=== PATIENT | female | born 1930 | race Caucasian/White ===

== ENCOUNTER 2017-02-17 23:19 | Observation (INO) | payer OTHER, MEDICARE ==
[~2017-02-17] VITALS: Ht 149.9 cm; Wt 61.7 kg
--- NOTE | 2017-02-17 23:46 | ED SYNCOPE COMPLAINT ---
History of Present Illness General Chief Complaint: Syncope and Near-Syncope Stated Complaint: BIBA SYNCOPE Source: patient, family, old records, EMS Exam Limitations: no limitations Vital Signs & Intake/Output Vital Signs & Intake/Output Vital Signs Date Time Temp Pulse Resp B/P B/P Pulse O2 O2 Flow FiO2 Mean Ox Delivery Rate 02/18 0109 97.1 74 18 160/69 97 Nasal 2.0L Cannula 02/17 2343 97.8 89 18 132/89 98 Room Air ED Intake and Output 02/18 0000 02/17 1200 Intake Total Output Total Balance Patient 136 lb Weight Weight Reported by Patient Measurement Method Allergies Coded Allergies: Cephalosporins (UNKNOWN 02/17/17) MDX - Amlodipine (From NORVASC) (TONGUE SWELLING 01/19/11) MDX - Ciprofloxacin (From CIPRO HC) (RASH 01/19/11) MDX - Hydrocortisone (From CIPRO HC) (RASH 01/19/11) Penicillins (UNKNOWN 02/17/17) Sulfa (Sulfonamide Antibiotics) (UNKNOWN 02/17/17) sulfamethoxazole (From BACTRIM) (UNKNOWN 02/17/17) trimethoprim (From BACTRIM) (UNKNOWN 02/17/17) Uncoded Allergies: ANTIBIOTICS (TONGUE SWELLING 01/19/11) Triage Note: TRIAGE: BIBA FROM HOME REPORTS SUDDEN ONSET R SIDE PAIN FOLLOWED BY SYNCOPAL EPISODE DATA ARCHITECT. PER EMS, SLIGHTLY HYPOTENSIVE ON EMS ARRIVAL. PATIIENT REPORTED DURING TRANSPORT FELT URGE TO SYNCOPIZE AGAIN BUT DID NOT. PATIENT DENIES CP/SOB. COLOR WNL. PREHOSP FINGERSTICK 121. Triage Nurses Notes Reviewed? yes HPI: Patient woke up at 2 AM Friday morning with a dry, nonproductive cough. Cough has been constant throughout the day. Positive anorexia but no nausea or vomiting. Patient denies shortness of breath. Tonight she was getting ready for bed when she had a visit sharp sudden pain right side. The pain lasted approximately 20 seconds but then the patient felt very lightheaded. Patient went and knocked on her son's bedroom door and then she had a witnessed syncopal episode. Son states that she was out for a few seconds and then she came to but when she attempted to sit up she had another syncopal episode. She again came to after a few seconds and this time stating on the floor for a few minutes report get up. Patient currently denies any pain. Patient denies any chest pain or palpitations prior to the episode. Past History Travel History Traveled to [place] past 21 day No Medical History Any Pertinent Medical History? 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 No Review of Systems Review of Systems Constitutional: Reports: no symptoms. EENTM: Reports: no symptoms. Respiratory: Reports: see HPI, cough. Cardiovascular: Reports: no symptoms. GI: Reports: no symptoms. Genitourinary: Reports: no symptoms. Musculoskeletal: Reports: no symptoms. Skin: Reports: no symptoms. Neurological/Psychological: Reports: no symptoms. All Other Systems: Reviewed and Negative Physical Exam Physical Exam General Appearance: well developed/nourished, alert, awake, anxious, mild distress Head: atraumatic, normal appearance Eyes: Bilateral: PERRL, EOMI. Ears, Nose, Throat: normal pharynx, normal ENT inspection, hearing grossly normal Neck: normal inspection, supple, full range of motion Respiratory: normal breath sounds, chest non-tender, no respiratory distress, lungs clear Cardiovascular: regular rate/rhythm, normal peripheral pulses Gastrointestinal: normal bowel sounds, soft, non-tender, no organomegaly Extremities: RIGHT GREAT TOENAIL LIFTED UP, BLEEDING CONTROLLED Psychiatric: awake, alert, oriented x 3 Cranial Nerves: normal hearing, normal speech, PERRL Motor/Sensory: no motor/sensory deficits Skin: intact, normal color, warm/dry Core Measures ACS in differential dx? Yes CVA/TIA Diagnosis: No Sepsis Present: No Sepsis Focused Exam Completed? No Progress Differential Diagnosis: AMI, drug induced syncope, orthostatic syncope, pulmonary embolus, sick sinus syndrome Plan of Care: Orders Procedure Date/time Status Heart Healthy Diet 02/[address] in observation 02/18 138 Active ED Holding Orders 02/18 138 Active Vital Signs 02/18 138 Active Code Status 02/18 138 Active Add-on Test (ER Only) 02/18 0105 Active D-DIMER 02/17 2355 Active Telemetry/Bail Bonding Agent 02/17 2345 Active TROPONIN LEVEL 02/17 2345 Complete COMPREHENSIVE METABOLIC PANEL 02/17 2345 Complete CBC WITHOUT DIFFERENTIAL 02/17 2345 Complete EKG 02/17 2323 Active Laboratory Tests 02/17/176: Anion Gap 14, Estimated GFR 47 L, BUN/Creatinine Ratio 17.3, Glucose 107 H, Calcium 10.0, Total Bilirubin 0.7, AST 24, ALT 25, Alkaline Phosphatase 88, Troponin I < 0.01, Total Protein 7.0, Albumin 4.1, Globulin 2.9, Albumin/ Globulin Ratio 1.4, D-Dimer High Sensitivty Pending, CBC w Diff NO MAN DIFF REQ, RBC 4.14 L, MCV 90.8, MCH 31.2 H, RDW 13.0, MPV 8.1, Gran % 83.9 H, Lymphocytes % 6.3 L, Monocytes % 8.8, Eosinophils % 0.8, Basophils % 0.2, Absolute Granulocytes 7.1 H, Absolute Lymphocytes 0.5 L, Absolute Monocytes 0.8 H, Absolute Eosinophils 0.1, Absolute Basophils 0, PUBS MCHC 34.4 Diagnostic Imaging: Viewed by Me: Radiology Read. Discussed w/RAD: Radiology Read. CXR Impression: PATIENT: MILIND LOPEZ PRESENT AGE : 86 PATIENT ACCOUNT NO: [id number] : 32 LOCATION: [facility] ORDERING PHYSICIAN: Harshad Robles MD SERVICE DATE: 02/17/17 EXAM TYPE: RAD - XRY-CHEST XRAY, TWO VIEWS EXAMINATION: XR CHEST CLINICAL INFORMATION: Productive cough. COMPARISON: 01/19/2011 TECHNIQUE: 2 views of the chest were obtained. FINDINGS: The lungs are well expanded. No consolidation, edema, or effusion. No pneumothorax. There is a large hiatal hernia with an air-fluid level. The cardiac silhouette is otherwise unremarkable. Aortic calcifications noted. Mild degenerative changes in the spine. IMPRESSION: No acute pulmonary finding. Large hiatal hernia. DICTATED BY: Benjamín PERKINS,Álvaro DATE/TIME DICTATED:02/18/1710 CONFIGURATION ANALYST:ALCON DATE/TIME TRANSCRIBED:10 CONFIDENTIAL, DO NOT COPY WITHOUT APPROPRIATE AUTHORIZATION. < Electronically signed in Other Vendor System> SIGNED BY: Benjamín PERKINS, Álvaro 02/18/17 0018 Pre-Hospital EKG: NSR, no ST T wave changes Initial ED EKG: NSR, no ST T wave changes Prior EKG: unchanged Rhythm Strip: normal sinus rhythm Departure Departure Disposition: STILL A PATIENT Condition: Stable Clinical Impression Primary Impression: Syncope Qualifiers: Syncope type: unspecified Qualified Code: R55 - Syncope and collapse Referrals: Noe PERKINS,Suki Maya (PCP/Family) Departure Forms: Customer Survey General Discharge Information Observation Note Spoke With: Nithya PERKINS,Saniya Physician Advisor Notified: SHARON PERKINS,HARSHAD Russ Place Patient In: Non-ED OBS Care Area Rationale for Observation: My rational for observation is as follows [TELE MONITORING, SERIAL ENZYMES, CARDIOLOGY CONSULTATION].
[2017-02-18 00:12] LABS: ABSOLUTE BASOPHIL COUNT 0 /CUMM (0.0-0.2); ABSOLUTE EOSINOPHIL COUNT 0.1 /CUMM (0.0-0.7); ABSOLUTE GRANULOCYTE CT 7.1 /CUMM (1.4-6.5); ABSOLUTE LYMPH COUNT 0.5 /CUMM (1.2-3.4); ABSOLUTE MONOCYTE COUNT 0.8 /CUMM (0.10-0.60); BASOPHIL % 0.2 % (0.0-2.0); EOSINOPHIL % 0.8 % (0-5); GRANULOCYTE % 83.9 % (42.2-75.2); HEMATOCRIT 37.6 % (37-47); MEAN CORPUSCULAR HGB 31.2 PG (27.0-31.0); MEAN CORPUSCULAR HGB CONC 34.4 G/DL (33.0-37.0); MEAN CORPUSCULAR VOLUME 90.8 FL (81.0-99.0); MEAN PLATELET VOLUME 8.1 FL (7.4-10.4); PLATELET COUNT 196 /CUMM (130-400); RED BLOOD CELL CT 4.14 /CUMM (4.20-5.40); WHITE BLOOD CELL COUNT 8.5 /CUMM (4.8-10.8)
--- NOTE | 2017-02-18 00:18 | RADIOLOGY REPORT ---
EXAMINATION: XR CHEST CLINICAL INFORMATION: Productive cough. COMPARISON: 01/19/2011 TECHNIQUE: 2 views of the chest were obtained. FINDINGS: The lungs are well expanded. No consolidation, edema, or effusion. No pneumothorax. There is a large hiatal hernia with an air-fluid level. The cardiac silhouette is otherwise unremarkable. Aortic calcifications noted. Mild degenerative changes in the spine. IMPRESSION: No acute pulmonary finding. Large hiatal hernia.
--- NOTE | 2017-02-18 02:34 | History & Physical ---
Katy Jensen MD 02/18/17 0233: General Information and HPI MD Statement: I have seen and personally examined MILIND LOPEZ and documented this H&P. The patient is a 86 year old F who presented with a patient stated chief complaint of [passing out]. Source of Information: patient, old records Exam Limitations: no limitations History of Present Illness: Patient is a 86-year-old female with past medical history of hypertension, hyperlipidemia, GERD, hiatal hernia, osteoarthritis, pyelonephritis presenting this admission with chief complaint of passing out. Per patient she woke up on 02/17 at 2 AM with a productive cough with clear sputum. Patient tried to go back to sleep however was unable to at approximately 6 AM she started taking Robitussin DM. Patient states that she has not been eating much during the day and had a poor appetite; ate 1/2 a bagel and coffee in the morning, approximately 32 ounces of water during the day and a small amount of soup for dinner. Patient states that this evening at approximately 10 PM she got out of bed to use the bathroom and felt okay. States when she went back to bed at approximately 10:15 she started having severe sharp diffuse abdominal pain and felt bloated. Patient states that she felt clammy at the time that she was going to pass out so got out of bed to search for her who was at the kitchen at the time. Patient states that she was unable to make it that are and knocked on her son's door prior to feeling as though she was going to pass out and sat down on the floor. Patient states that her son believes that she had passed out however patient states that she was able to hear him calling her name. Patient denies any prodromal symptoms of chest pain, palpitations, lightheadedness prior to this event. Patient states that afterwards she was aware of her surroundings and was not confused. Patient denies any seizure-like activity including tongue biting or urinary/fecal incontinence at that time however does note that she did have some urinary incontinence when she was lying in bed. Patient does state that she was feeling weak at the time. Review of systems: Shortness of breath on exertion, denies fever, endorses chills however states that her thermostat is kept at 63F, endorses hoarseness, denies nasal congestion, sore throat, headaches, visual disturbances, nausea/ vomiting, constipation/diarrhea, dysuria/hematuria. Past medical history: As above Past surgical history: Noncontributory Social history: Former smoker, lives with her and son Family history: Significant for heart disease in sisters with DE at the age of 51 and valvular heart disease and at the age of 72, paternal aunt at the age of 51 with DE. Allergies: Penicillin, sulfa, beta lactams Medications: Metoprolol XL 50 mg, hydrochlorothiazide 50 mg, losartan 25 mg, omeprazole 20 mg, simvastatin 40 mg, folic acid 1 mg, aspirin 81 mg, multivitamin, Sancho-Citrate 602 times a day, cranberry 500 mg, biotin, esterase cream weekly In the ED patient received 1 L normal saline bolus 1. Allergies/Medications Allergies: Coded Allergies: Cephalosporins (UNKNOWN 02/17/17) Penicillins (UNKNOWN 02/17/17) Sulfa (Sulfonamide Antibiotics) (UNKNOWN 02/17/17) amlodipine (TONGUE SWELLING 02/18/17) ciprofloxacin (From CIPRO ) (RASH 02/18/17) hydrocortisone (From CIPRO HC) (RASH 02/18/17) sulfamethoxazole (From BACTRIM) (UNKNOWN 02/17/17) trimethoprim (From BACTRIM) (UNKNOWN 02/17/17) Uncoded Allergies: ANTIBIOTICS (TONGUE SWELLING 01/19/11) Home Med list Aspirin (Ecotrin*) 81 MG TABLET.DR 1 TAB PO DAILY heart (Reported) Folic Acid 1 MG TABLET 1 TAB PO DAILY supplement (Reported) Hydrochlorothiazide 25 MG TABLET 1 TAB PO DAILY heart (Reported) Losartan Potassium 50 MG TABLET 1 HTAB PO DAILY HTN (Reported) Metoprolol Succinate 50 MG TAB.ER.24H 1 TAB PO DAILY heart (Reported) Omeprazole 20 MG CAPSULE.DR 1 CAP PO DAILY GI (Reported) Simvastatin (Simvastatin*) 40 MG TABLET 1 TAB PO QPM Heart (Reported) Past History Travel History Traveled to [place] past 21 day No Medical History Neurological: NONE EENT: NONE Cardiovascular: hypertension, hyperlipidemia Respiratory: NONE Gastrointestinal: GERD, hiatal hernia Hepatic: NONE Renal: NONE Musculoskeletal: osteoporosis Psychiatric: NONE Endocrine: NONE Blood Disorders: NONE Cancer(s): NONE CLINICAL PRACTITIONER/Reproductive: NONE Surgical History Surgical History: non-contributory Past Family/Social History Psychosocial History Services at Home: None ETOH Use: denies use Illicit Drug Use: denies illicit drug use Review of Systems Review of Systems Constitutional: Reports: see HPI, chills, weakness. Cardiovascular: Reports: see HPI. Respiratory: Reports: see HPI. GI: Reports: see HPI, abdominal pain. Genitourinary: Reports: see HPI. Musculoskeletal: Reports: no symptoms. Skin: Reports: no symptoms. Neurological/Psychological: Reports: weakness. Hematologic/Endocrine: Reports: no symptoms. Exam & Diagnostic Data Last 24 Hrs of Vital Signs/I&O Vital Signs Date Time Temp Pulse Resp B/P B/P Pulse O2 O2 Flow FiO2 Mean Ox Delivery Rate 02/18 0340 99 Nasal 2.0L Cannula 02/18 0339 97.6 68 18 149/65 99 Nasal 2.0L Cannula 02/18 0109 97.1 74 18 160/69 97 Nasal 2.0L Cannula 02/17 2343 97.8 89 18 132/89 98 Room Air Intake & Output 02/18 0800 02/18 0000 02/17 1600 Intake Total Output Total Balance Patient 136 lb Weight Weight Reported by Patient Measurement Method Physical Exam General Appearance Alert, Oriented X3, Cooperative, No Acute Distress Skin No Rashes Skin Temp/Moisture Exam: Warm/Dry HEENT Atraumatic, PERRLA, EOMI, minimally dry mucosal membranes Neck Supple, No JVD Cardiovascular Regular Rate, Normal S1, Normal S2, No Murmurs Lungs Clear to Auscultation, Normal Air Movement Abdomen Normal Bowel Sounds, Soft, No Tenderness Extremities No Clubbing, No Cyanosis, No Edema, Normal Pulses, No Tenderness/ Swelling Vascular Normal Pulses, Pulses Symmetrical Last 24 Hrs of Labs/Enoc: Laboratory Tests 02/17/17 4136: Anion Gap 14, Estimated GFR 47 L, BUN/Creatinine Ratio 17.3, Glucose 107 H, Calcium 10.0, Total Bilirubin 0.7, AST 24, ALT 25, Alkaline Phosphatase 88, Troponin I < 0.01, Total Protein 7.0, Albumin 4.1, Globulin 2.9, Albumin/ Globulin Ratio 1.4, D-Dimer High Sensitivty 205, CBC w Diff NO MAN DIFF REQ, RBC 4.14 L, MCV 90.8, MCH 31.2 H, RDW 13.0, MPV 8.1, Gran % 83.9 H, Lymphocytes % 6.3 L, Monocytes % 8.8, Eosinophils % 0.8, Basophils % 0.2, Absolute Granulocytes 7.1 H, Absolute Lymphocytes 0.5 L, Absolute Monocytes 0.8 H, Absolute Eosinophils 0.1, Absolute Basophils 0, PUBS MCHC 34.4 Diagnostic Data EKG Results Normal sinus rhythm at 76 bpm, normal axis, no ST or T wave changes, MA: 160, QRS: 76, QTC: 441 CXR Results No acute pulmonary findings, large hiatal hernia Assessment/Plan Assessment: Patient is an 86 y/o femlae with history of HTN and extensive cardiac history in her family presenting after having a presyncopal/syncopal episode this evening. The syncopal episode could be due multiple etiologies including dehydration from poor oral intake, Robitussin use, vasovagal episode secondary to coughing. However due to her extensive cardiac history will need to rule out any cardiac etiology including arrhythmias and valvular disease. 1. Syncopal/Presyncopal Episodes: - monitor on telemetry - serial EKG and trops - ECHO in AM - Cardiology consult in AM - continue gentle IV hydration - check orthostats - obtain a prolactin level 2.?LATON. Patient has a creatinine of 1.1. Her last documented creatinine here is from 7 years prior to this admission. - hold any nephrotoxic agents - gentle IV fluid hydration - repeat BEP in AM Continue chronic medications as prescribed DVT PPx: Heparin SC Diet: Heart Healthy Code: DNR/DNI As Ranked By This Provider Problem List: 1. Syncope Qualifiers Syncope type: unspecified Qualified Code: R55 - Syncope and collapse Core Measures/Misc (10/27) Acute Coronary Syndrome ACS Diagnosis: No Congestive Heart Failure Congestive Heart Failure Diagnosis No Cerebrovascular Accident CVA/TIA Diagnosis: No VTE (View Protocol) VTE Risk Factors Age>40 No Mechanical VTE Prophylaxis d/t N/A MechProphylax Ordered No VTE Pharm Prophylaxis d/t NA PharmProphylax ordered Sepsis (View protocol) Sepsis Present: No Saniya Barriga 02/18/17 0453: Attending MD Review Statement Attending Statement Attending MD Statement: examined this patient, discuss w/resident/PA/STONE PLANER, agreed w/resident/PA/STONE PLANER, reviewed EMR data (avail), reviewed images, amended to note Attending Assessment/Plan: CC: Passed out 2 times PMH: HTN, HLD, recurrent UTI Patient was brought in ER after passing out twice at home. The patient states that she was lying on the bed this evening when she noticed intense abdominal pain, she was going to see her in kitchen but felt like she was going to pass out, felt very cold, clammy so instead of going to kitchen she knocked on her son's the door as his room was closer. By the time he opened room patient was already bent over, son states that she lost consciousness, she was alert again, he stood her up and she lost consciousness again. She noticed her underpants overweight but not sure if she had it while she had abdominal pain or when she was passing out. She denies any confusion after waking up, was oriented where she was, family did not notice any seizure-like activity. Patient denies any palpitations, chest pain before the episode. She had similar episode approximately 30 or more years back but no recent episode. Her physician told her that she is supposed to drink certain amount of water, she is not drinking that every day, may have decreased by mouth intake yesterday. She also has chronic cough and multiple seasonal allergies but this morning she noticed more sinus congestion, upper respiratory symptoms, worsened cough from her baseline so she took Robitussin this morning. Vitals: Afebrile, pulse in 70s, RR 18, blood pressure 132/89, saturating well on 2 L nasal cannula. Orthostatic vitals negative On exam: A O 3, cooperative, no acute distress, neck supple, JVD normal, no lymphadenopathy, mucosa moist, no focal neurological deficit, no dependent edema , no obvious skin rashes or inflammation CVS: S1-S2, RRR. RS: Clear to auscultate bilaterally. Abdomen: Soft, NT, ND, bowel sounds present. Labs: CBC, BMP, LFT, d-dimer, troponin unremarkable CXR: No acute pulmonary finding ECG: No acute changes Assessment and plan 86-year-old female with past medical history significant for HLD, HTN, currently on triamterene and HCTZ combination along with metoprolol and losartan, presented in ER for 2 episodes of syncope/presyncope. Patient had severe abdominal pain immediately before feeling cold and clammy and lightheaded followed by a fall, family noticed losing consciousness, she regained consciousness in short period of time without any confusion thereafter, patient denies any chest pain palpitations before this episode. No seizure-like activity. Patient was mildly hypotensive in EMS but her blood pressure on arrival in ER was 132/89, no tachycardia, no arrhythmia noted. Complete physical exam unremarkable, orthostatics negative. This syncopal episode can be secondary to vasovagal, dehydration, related to medication use of Robitussin but cardiac arrhythmias and structural heart disease should be ruled out, a series should be ruled out, low probability of PE, d-dimer negative. + Syncope + History of HTN, HLD - Place in observation on telemetry - Continuous telemetry monitoring - Serial troponin and EKG - Gentle hydration for 1 L normal saline - Orthostatic vitals in a.m. - add prolactin to sample in lab - 2-D echocardiogram in a.m. - Cardiology consult - DVT prophylaxis - Adequate pain control
[2017-02-18] MEDS ORDERED: METOPROLOL SUCC50 M2 PO (05:44)
[2017-02-18] MEDS ORDERED: LOSARTAN POTASS50 M1 PO (05:46)
[2017-02-18] MEDS ORDERED: OMEPRAZOLE20 M2 PO (05:46)
[2017-02-18] MEDS ORDERED: SIMVASTATIN40 M1 PO (05:46)
[2017-02-18] MEDS ORDERED: HYDROCHLOROTHIA50 M1 PO (05:47)
[2017-02-18 08:01] LABS: ABSOLUTE BASOPHIL COUNT 0 /CUMM (0.0-0.2); ABSOLUTE EOSINOPHIL COUNT 0 /CUMM (0.0-0.7); ABSOLUTE GRANULOCYTE CT 5.6 /CUMM (1.4-6.5); ABSOLUTE LYMPH COUNT 0.8 /CUMM (1.2-3.4); ABSOLUTE MONOCYTE COUNT 0.7 /CUMM (0.10-0.60); BASOPHIL % 0.3 % (0.0-2.0); EOSINOPHIL % 0.5 % (0-5); GRANULOCYTE % 77.5 % (42.2-75.2); MEAN CORPUSCULAR HGB 31.5 PG (27.0-31.0); MEAN CORPUSCULAR HGB CONC 34.1 G/DL (33.0-37.0); MEAN CORPUSCULAR VOLUME 92.1 FL (81.0-99.0); MEAN PLATELET VOLUME 8.4 FL (7.4-10.4); PLATELET COUNT 191 /CUMM (130-400); RED BLOOD CELL CT 4.01 /CUMM (4.20-5.40); WHITE BLOOD CELL COUNT 7.2 /CUMM (4.8-10.8)
[2017-02-18 08:05] VITALS: BP 138/58
[2017-02-18] MEDS ORDERED: ASPIRIN EC81 M1 PO (08:49)
[2017-02-18] MEDS ORDERED: FOLIC ACID1 M1 PO (08:50)
[2017-02-18] MEDS ORDERED: HYDROCHLOROTHIA25 M1 PO (08:51)
--- NOTE | 2017-02-18 11:45 | CT SCAN REPORT ---
EXAMINATION: CT HEAD WITHOUT CONTRAST CLINICAL INFORMATION: Syncope COMPARISON: None TECHNIQUE: Contiguous axial imaging was performed from the skull base to vertex without intravenous administration of contrast. DLP: 603 mGy-cm FINDINGS: No intra-axial or extra-axial hemorrhage. No acute territorial infarct. Chronic small vessel ischemic disease of the periventricular white matter with generalized atrophy. Preservation of perkins-white matter differentiation. No mass, mass effect, or midline shift. No fracture. The mastoid air cells and visualized paranasal sinuses are clear. IMPRESSION: No acute intracranial pathology. Chronic small vessel ischemic disease.
--- NOTE | 2017-02-18 12:43 | PN- Att Addend ---
Attending Addendum Attending Brief Note Patient seen and examined. Lying comfortably in bed with no acute distress. Denies any further abdominal pain. Denies chest pain or palpitations. She remains hemodynamically stable. Orthostatic vitals were negative. Ischemic changes noted on EKG. Vital Signs Date Time Temp Pulse Resp B/P B/P Pulse O2 O2 Flow FiO2 Mean Ox Delivery Rate 02/18 1102 70 18 173/74 97 Room Air 02/18 0934 68 18 138/58 02/18 0807 98.0 68 20 138/58 96 Nasal 2.0L Cannula 02/18 0805 98.0 69 20 138/58 96 Nasal 2.0L Cannula 02/18 0800 97 Room Air 02/18 0606 98.4 66 20 171/71 99 Nasal 2.0L Cannula 02/18 0340 99 Nasal 2.0L Cannula 02/18 0339 97.6 68 18 149/65 99 Nasal 2.0L Cannula 02/18 0109 97.1 74 18 160/69 97 Nasal 2.0L Cannula 02/17 2343 97.8 89 18 132/89 98 Room Air General appearance: Well-developed, not in acute distress Heart: S1-S2 regular with no audible murmur l Lungs: Good entry bilaterally, clear to auscultation Abdomen: Soft, nontender with normal bowel sounds. No CVA tenderness. Extremities: No pedal edema. Skin: Intact with no rashes. Neurologic: No gross focal deficits. Laboratory Tests 02/18/17 1209: Troponin I Pending 02/18/17 0620: Anion Gap 14, Estimated GFR 53 L, BUN/Creatinine Ratio 18.0, Troponin I < 0.01, Prolactin 5.4, CBC w Diff NO MAN DIFF REQ, RBC 4.01 L, MCV 92.1, MCH 31.5 H, RDW 13.0, MPV 8.4, Gran % 77.5 H, Lymphocytes % 11.5 L, Monocytes % 10.2 H, Eosinophils % 0.5, Basophils % 0.3, Absolute Granulocytes 5.6, Absolute Lymphocytes 0.8 L, Absolute Monocytes 0.7 H, Absolute Eosinophils 0, Absolute Basophils 0, PUBS MCHC 34.1 02/17/17 2356: Anion Gap 14, Estimated GFR 47 L, BUN/Creatinine Ratio 17.3, Glucose 107 H, Calcium 10.0, Total Bilirubin 0.7, AST 24, ALT 25, Alkaline Phosphatase 88, Troponin I < 0.01, Total Protein 7.0, Albumin 4.1, Globulin 2.9, Albumin/ Globulin Ratio 1.4, D-Dimer High Sensitivty 205, CBC w Diff NO MAN DIFF REQ, RBC 4.14 L, MCV 90.8, MCH 31.2 H, RDW 13.0, MPV 8.1, Gran % 83.9 H, Lymphocytes % 6.3 L, Monocytes % 8.8, Eosinophils % 0.8, Basophils % 0.2, Absolute Granulocytes 7.1 H, Absolute Lymphocytes 0.5 L, Absolute Monocytes 0.8 H, Absolute Eosinophils 0.1, Absolute Basophils 0, PUBS MCHC 34.4 Problems: 1. Syncope; query etiology was precipitated by intense abdominal pain and feeling of clamminess. She may have had a vasovagal episode. 2. 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 3. Abdominal pain; resolved. Recommendations: -Recommend telemetry monitoring overnight to rule out any arrhythmias that may have precipitated her fall. Follow-up echocardiogram to rule out valvular heart disease or severe cardiomyopathy -Obtain head CT to rule out acute intracranial process. 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 However she denies any dysuria. She has no CVA tenderness. She is afebrile and has no leukocytosis. Recommend checking urinalysis. -Mobilize patient.
--- NOTE | 2017-02-18 18:08 | Cons- Podiatry ---
General Information and HPI Consulting Request Date of Consult: 02/18/17 Requested By: Saniya Barriga MD Reason for Consult: Traumatic avulsion of left hallux toenail s/p syncope Source of Information: patient Exam Limitations: no limitations History of Present Illness: This is an 86-year-old female who is seen and evaluated in the emergency department at [facility]. She is admitted for a syncopal episode and fall that occurred earlier this afternoon, and podiatry is consulted for a traumatic avulsion of the toenail of the left hallux, which she associates with the fall. The patient is seen and evaluated at bedside in a pleasant disposition, and she denies fever, chills, nausea, vomiting, diaphoresis, shortness of breath, chest pain at the time of my examination Allergies/Medications Allergies: Coded Allergies: Cephalosporins (UNKNOWN 02/17/17) Penicillins (UNKNOWN 02/17/17) Sulfa (Sulfonamide Antibiotics) (UNKNOWN 02/17/17) amlodipine (TONGUE SWELLING 02/18/17) ciprofloxacin (From CIPRO HC) (RASH 02/18/17) hydrocortisone (From CIPRO HC) (RASH 02/18/17) sulfamethoxazole (From BACTRIM) (UNKNOWN 02/17/17) trimethoprim (From BACTRIM) (UNKNOWN 02/17/17) Uncoded Allergies: ANTIBIOTICS (TONGUE SWELLING 01/19/11) Home Med List: Aspirin (Ecotrin*) 81 MG TABLET.DR 1 TAB PO DAILY heart (Reported) Folic Acid 1 MG TABLET 1 TAB PO DAILY supplement (Reported) Hydrochlorothiazide 25 MG TABLET 1 TAB PO DAILY heart (Reported) Losartan Potassium 50 MG TABLET 1 HTAB PO DAILY HTN (Reported) Metoprolol Succinate 50 MG TAB.ER.24H 1 TAB PO DAILY heart (Reported) Omeprazole 20 MG CAPSULE.DR 1 CAP PO DAILY GI (Reported) Simvastatin (Simvastatin*) 40 MG TABLET 1 TAB PO QPM Heart (Reported) Current Medications: Current Medications Sig/Alyse Start time Last Medication Dose Route Stop Time Status Admin Aspirin 81 MG DAILY 02/18 1000 AC 02/18 PO 0933 Aspirin 0 .STK-MED ONE 02/18 0857 DC PO Atorvastatin Calcium 40 MG 1700 02/18 1700 AC 02/18 PO 1713 Enoxaparin Sodium 40 MG DAILY 02/18 1000 AC 02/18 SC 1010 Enoxaparin Sodium 0 .STK-MED ONE 02/18 0942 DC SC Folic Acid 1 MG DAILY 02/18 1000 AC 02/18 PO 0933 Folic Acid 0 .STK-MED ONE 02/18 0857 DC PO Guaifenesin 600 MG Q12 02/18 1000 AC 02/18 PO 1011 Lidocaine 0 .STK-MED ONE 02/18 1715 DC .ROUTE Losartan Potassium 25 MG DAILY 02/18 1000 AC 02/18 PO 0934 Losartan Potassium 0 .STK-MED ONE 02/18 0857 DC PO Metoprolol Succinate 50 MG AT BEDTIME 02/18 2200 AC PO Metoprolol Succinate 50 MG DAILY 02/18 1000 DC PO Omeprazole 0 .STK-MED ONE 02/18 0747 DC PO Omeprazole 20 MG DAILY AC 02/18 0700 AC 02/18 PO 0746 Sodium Chloride 1,000 ML ONCE ONE 02/18 0245 DC 02/18 IV 02/18 1604 0335 Past History Medical History Neurological: NONE EENT: NONE Cardiovascular: hypertension, hyperlipidemia Respiratory: NONE Gastrointestinal: GERD, hiatal hernia Hepatic: NONE Renal: NONE Musculoskeletal: osteoporosis Psychiatric: NONE Endocrine: NONE Blood Disorders: NONE 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 Exam & Diagnostic Data Vital Signs and I&O Vital Signs Date Time Temp Pulse Resp B/P B/P Pulse O2 O2 Flow FiO2 Mean Ox Delivery Rate 02/18 1715 97.6 82 19 176/79 97 Room Air 02/18 1530 98.4 73 19 167/67 98 Room Air 02/18 1102 70 18 173/74 97 Room Air 02/18 0934 68 18 138/58 02/18 0807 98.0 68 20 138/58 96 Nasal 2.0L Cannula 02/18 08 98.0 69 20 138/58 96 Nasal 2.0L Cannula 02/18 0800 97 Room Air 02/18 0606 98.4 66 20 171/71 99 Nasal 2.0L Cannula 02/18 0340 99 Nasal 2.0L Cannula 02/18 0339 97.6 68 18 149/65 99 Nasal 2.0L Cannula 02/18 0109 97.1 74 18 160/69 97 Nasal 2.0L Cannula 02/17 2343 97.8 89 18 132/89 98 Room Air Intake & Output 02/18 1600 02/18 0800 02/18 0000 02/17 1600 02/17 0802/17 0000 Intake Total Output Total Balance Patient 136 lb Weight Weight Reported by Patient Measurement Method Physical Exam: Dorsalis pedis and posterior tibial pulses are 2+ bilaterally. Temperature gradient is normal in both lower extremities. Capillary refill time is 3s x 10 toes. There is hair loss dorsal and bilateral, slight loss of skin turgor dorsal and bilateral, and mild varicosities dorsal and bilateral. Her sensory exam is grossly normal. She has mild hammertoe deformities on the second through fifth digits equal and bilateral. On the left hallux there is a mild amount of nonpitting edema, patchy erythema and a thickened and discolored toenail that is almost completely lysed from the nail bed. Upon avulsion of the nail there is partial-thickness skin loss, but no lacerations. No ecchymosis. No open lesions. No purulence, no drainage, no bullous changes. Last 24 Hours of Labs: Laboratory Tests 02/18 02/18 1209 0620 Chemistry Sodium (137 - 145 mmol/L) 138 Potassium (3.5 - 5.1 mmol/L) 3.8 Chloride (98 - 107 mmol/L) 99 Carbon Dioxide (22 - 30 mmol/L) 25 Anion Gap (5 - 16) 14 BUN (7 - 17 mg/dL) 18 H Creatinine (0.5 - 1.0 mg/dL) 1.0 Estimated GFR (>60 ml/min) 53 L BUN/Creatinine Ratio (7 - 25 %) 18.0 Troponin I (< 0.11 ng/ml) < 0.01 < 0.01 Prolactin (3.0 - 18.6 ng/mL) 5.4 Hematology CBC w Diff NO MAN DIFF REQ WBC (4.8 - 10.8 /CUMM) 7.2 RBC (4.20 - 5.40 /CUMM) 4.01 L Hgb (12.0 - 16.0 G/DL) 12.6 Hct (37 - 47 %) 37.0 MCV (81.0 - 99.0 FL) 92.1 MCH (27.0 - 31.0 PG) 31.5 H RDW (11.5 - 14.5 %) 13.0 Plt Count (130 - 400 /CUMM) 191 MPV (7.4 - 10.4 FL) 8.4 Gran % (42.2 - 75.2 %) 77.5 H Lymphocytes % (20.5 - 51.1 %) 11.5 L Monocytes % (1.7 - 9.3 %) 10.2 H Eosinophils % (0 - 5 %) 0.5 Basophils % (0.0 - 2.0 %) 0.3 Absolute Granulocytes (1.4 - 6.5 /CUMM) 5.6 Absolute Lymphocytes (1.2 - 3.4 /CUMM) 0.8 L Absolute Monocytes (0.10 - 0.60 /CUMM) 0.7 H Absolute Eosinophils (0.0 - 0.7 /CUMM) 0 Absolute Basophils (0.0 - 0.2 /CUMM) 0 PUBS MCHC (33.0 - 37.0 G/DL) 34.1 02/17 2356 Chemistry Sodium (137 - 145 mmol/L) 139 Potassium (3.5 - 5.1 mmol/L) 3.7 Chloride (98 - 107 mmol/L) 99 Carbon Dioxide (22 - 30 mmol/L) 26 Anion Gap (5 - 16) 14 BUN (7 - 17 mg/dL) 19 H Creatinine (0.5 - 1.0 mg/dL) 1.1 H Estimated GFR (>60 ml/min) 47 L BUN/Creatinine Ratio (7 - 25 %) 17.3 Glucose (65 - 99 mg/dL) 107 H Calcium (8.4 - 10.2 mg/dL) 10.0 Total Bilirubin (0.2 - 1.3 mg/dL) 0.7 AST (14 - 36 U/L) 24 ALT (9 - 52 U/L) 25 Alkaline Phosphatase (<127 U/L) 88 Troponin I (< 0.11 ng/ml) < 0.01 Total Protein (6.3 - 8.2 g/dL) 7.0 Albumin (3.5 - 5.0 g/dL) 4.1 Globulin (1.9 - 4.2 gm/dL) 2.9 Albumin/Globulin Ratio (1.1 - 2.2 %) 1.4 Coagulation D-Dimer High Sensitivty (0 - 243 ng/ml) 205 Hematology CBC w Diff NO MAN DIFF REQ WBC (4.8 - 10.8 /CUMM) 8.5 RBC (4.20 - 5.40 /CUMM) 4.14 L Hgb (12.0 - 16.0 G/DL) 12.9 Hct (37 - 47 %) 37.6 MCV (81.0 - 99.0 FL) 90.8 MCH (27.0 - 31.0 PG) 31.2 H RDW (11.5 - 14.5 %) 13.0 Plt Count (130 - 400 /CUMM) 196 MPV (7.4 - 10.4 FL) 8.1 Gran % (42.2 - 75.2 %) 83.9 H Lymphocytes % (20.5 - 51.1 %) 6.3 L Monocytes % (1.7 - 9.3 %) 8.8 Eosinophils % (0 - 5 %) 0.8 Basophils % (0.0 - 2.0 %) 0.2 Absolute Granulocytes (1.4 - 6.5 /CUMM) 7.1 H Absolute Lymphocytes (1.2 - 3.4 /CUMM) 0.5 L Absolute Monocytes (0.10 - 0.60 /CUMM) 0.8 H Absolute Eosinophils (0.0 - 0.7 /CUMM) 0.1 Absolute Basophils (0.0 - 0.2 /CUMM) 0 PUBS MCHC (33.0 - 37.0 G/DL) 34.4 Assessment/Plan Assessment/Plan 86-year-old female status post syncopal episode and fall, with a contusion of the left great toe and associated traumatic avulsion of the toenail. The patient was seen and evaluated in the emergency department. With informed verbal consent, 9 mL of 1% lidocaine was injected into the left great toe, and using the sterile components of the laceration kit the toenail avulsion was completed, the nail bed was inspected for lacerations and the nail folds were inspected for purulence and tunneling, and none were found. The wound was gently rinsed in normal saline, and the nailbed was dressed with a small piece of Telfa, 4 x 4 gauze, and a gentle wrap of Coban. The patient is recommended for 3-5 days of oral prophylaxis, preferably with clindamycin given her allergies. The patient had subjectively reported that she has several allergies to antibiotics, and if this is of concern upon discharge from the syncopal workup, antibiotics may be spared. She is to follow-up in our [place] office within 7-10 days of this procedure. I'm available for further discussion on this consultation at [phone]. Copies To: Noe PERKINS,Suki Maya Consult Acknowledgment - Thank you for your consult request.
--- NOTE | 2017-02-18 20:34 | Cons- Cardiology ---
General Information and HPI Consulting Request Date of Consult: 02/18/17 Requested By: Saniya Barriga MD History of Present Illness: Joanne is an 86 year old female with history of hypertension, dyslipidemia, remote tobacco abuse and family history of premature coronary artery disease. She also carries a history of recurrent pyelonephritis. She presented to [facility] after a syncopal episode. Joanne had been feeling poorly with a cough and poor appetite and, in particular, had been feeling a sharp discomfort in her right flank. She went to bed and while experiencing increasing pain felt lightheaded with palpitations. She arose from bed to knock on her sons bedroom door when she passed out. In general this patient does not have episodes of lightheadedness. She does have occasional palpitations that feel even with a normal heart rate. She has noted exercise intolerance characterized by shortness of breath. Otherwise she denies chest pain. Allergies/Medications Allergies: Coded Allergies: Cephalosporins (UNKNOWN 02/17/17) Penicillins (UNKNOWN 02/17/17) Sulfa (Sulfonamide Antibiotics) (UNKNOWN 02/17/17) amlodipine (TONGUE SWELLING 02/18/17) ciprofloxacin (From CIPRO HC) (RASH 02/18/17) hydrocortisone (From CIPRO HC) (RASH 02/18/17) sulfamethoxazole (From BACTRIM) (UNKNOWN 02/17/17) trimethoprim (From BACTRIM) (UNKNOWN 02/17/17) Uncoded Allergies: ANTIBIOTICS (TONGUE SWELLING 01/19/11) Home Med List: Aspirin (Ecotrin*) 81 MG TABLET.DR 1 TAB PO DAILY heart (Reported) Folic Acid 1 MG TABLET 1 TAB PO DAILY supplement (Reported) Hydrochlorothiazide 25 MG TABLET 1 TAB PO DAILY heart (Reported) Losartan Potassium 50 MG TABLET 1 HTAB PO DAILY HTN (Reported) Metoprolol Succinate 50 MG TAB.ER.24H 1 TAB PO DAILY heart (Reported) Omeprazole 20 MG CAPSULE.DR 1 CAP PO DAILY GI (Reported) Simvastatin (Simvastatin*) 40 MG TABLET 1 TAB PO QPM Heart (Reported) Review of Systems Review of Systems: cough Past History Travel History Traveled to [place] past 21 day No Medical History Neurological: NONE EENT: NONE Cardiovascular: hypertension, hyperlipidemia Respiratory: NONE Gastrointestinal: GERD, hiatal hernia Hepatic: NONE Renal: NONE Musculoskeletal: osteoporosis Psychiatric: NONE Endocrine: NONE Blood Disorders: NONE Cancer(s): NONE 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 Surgical History Surgical History: non-contributory Psychosocial History Services at Home: None Smoking Status: Unknown If Ever Smoked ETOH Use: denies use Illicit Drug Use: denies illicit drug use Exam & Diagnostic Data Vital Signs and I&O Vital Signs Date Time Temp Pulse Resp B/P B/P Pulse O2 O2 Flow FiO2 Mean Ox Delivery Rate 02/18 1917 97.5 66 19 142/67 99 Room Air 02/18 1715 97.6 82 19 176/79 97 Room Air 02/18 1530 98.4 73 19 167/67 98 Room Air 02/18 1102 70 18 173/74 97 Room Air 02/18 0934 68 18 138/58 02/18 0807 98.0 68 20 138/58 96 Nasal 2.0L Cannula 02/18 0805 98.0 69 20 138/58 96 Nasal 2.0L Cannula 02/18 0800 97 Room Air 02/18 0606 98.4 66 20 171/71 99 Nasal 2.0L Cannula 02/18 0340 99 Nasal 2.0L Cannula 02/18 0339 97.6 68 18 149/65 99 Nasal 2.0L Cannula 02/18 0109 97.1 74 18 160/69 97 Nasal 2.0L Cannula 02/17 2343 97.8 89 18 132/89 98 Room Air Intake & Output 02/18 1600 02/18 0800 02/18 0000 02/17 1600 02/17 0700 02/17 0000 Intake Total Output Total Balance Patient 136 lb Weight Weight Reported by Patient Measurement Method Physical Exam: General: WD/WN female in NAD; alert and oriented x 3 HEENT: NC/AT, PERRL, EOMI Neck: no JVD, no carotid bruit Heart: RRR w/o murmur Lungs: clear bilaterally ABdomen: soft, NT, +ve bowel sounds Extremities: no edema Assessment/Plan Assessment/Plan * This patient was likely somewhat dehydrated and upon arising became orthostatic and passed out. It is certainly possible that this patient also had a vasovagal event related to her pain. Adequate hydration is recommended. I would stop her HCTZ and begin Norvasc 10mg daily for her hypertension. * This patient does have exercise intolerance with shortness of breath which she feels is new. Obtain an echocardiogam. This patient should have a stress test which may be done as an outpatient. Consult Acknowledgment - Thank you for your consult request.
--- NOTE | 2017-02-19 07:38 | Patient Discharge Instructions ---
Discharge Instructions General Discharge Information You were seen/treated for: Syncope Special Instructions: -Please follow-up with your PCP within a week of discharge. -Please follow-up with your manager water wastewater, Dr. Monique within a week of discharge. -Please follow-up with traffic personnel supervisor Dr. North within a week of discharge. -Please take your medications as instructed. -Please return to the hospital if your symptoms not improve/worsen. Diet Recommended Diet: Heart Healthy Activity Additional ACTIVITY Info: As tolerated Acute Coronary Syndrome Inclusion Criteria At DC or during hospital stay patient has or had the following: ACS DIAGNOSIS No Discharge Core Measures Meds if any: Prescribed or Continued at Discharge Meds if any: NOT Prescribed or Continued at Discharge Congestive Heart Failure Inclusion Criteria At DC or during hospital stay patient has or had the following: CHF DIAGNOSIS No Discharge Core Measures Meds if any: Prescribed or Continued at Discharge Meds if any: NOT Prescribed or Continued at Discharge Cerebrovascular accident Inclusion Criteria At DC or during hospital stay patient has or had the following: CVA/TIA Diagnosis No Discharge Core Measures Meds if any: Prescribed or Continued at Discharge Meds if any: NOT Prescribed or Continued at Discharge Venous thromboembolism Inclusion Criteria VTE Diagnosis No VTE Type NONE VTE Confirmed by (Test) NONE Discharge Core Measures - Per Current guidelines, there needs to be overlap - treatment for the first 5 days of Warfarin therapy. - If discharged on Warfarin prior to 5 days of - overlap therapy, the patient will need to be - assessed for post discharge needs including - *Post discharge parental anticoagulation - *Warfarin and/or parental anticoagulation education - *Follow up date to check INR post discharge At least 5 days overlap therapy as Inpatient No Meds if any: Prescribed or Continued at Discharge Note: Overlap Therapy is Warfarin and Anticoagulant Meds if any: NOT Prescribed or Continued at Discharge
[2017-02-19] MEDS ORDERED: COZAAR25 M1 PO (07:43)
--- NOTE | 2017-02-19 10:13 | ECHOCARDIOGRAM REPORT ---
MILIND LOPEZ Age: 86 : 1930 Gender: F Exam Date: 02/18/2017 18:48 Exam Location: ER Ht (in): 59 Wt (lb): 136 BSA: 1.62 BP: 171 / 71 Ordering Physician: Yady New MD Referring Physician: Austin Kathleen MD, PhD Technologist: Melinda Aguirre SRINIVAS Room Number: [id number] Indications: PRESYNCOPE/SYNCOPE Rhythm: Technical Quality: Fair FINDINGS Left Ventricle Small left ventricular cavity. Normal left ventricular wall thickness. No obvious regional wall motion abnormalities. Normal left ventricular ejection fraction visually estimated at >65%. Abnormal relaxation filling pattern of the left ventricle for age (stage 1 diastolic dysfunction). Mildly increased resting left ventricular outflow tract velocity (1.3 m/s). Right Ventricle Normal right ventricular size and function. Right Atrium Normal right atrial size. Left Atrium Normal left atrial size. Mitral Valve Moderate mitral annular calcification. Mitral valve thickened. Mild mitral stenosis. Mild mitral regurgitation. Aortic Valve Trileaflet aortic valve. Diffuse thickening of the aortic valve cusps with reduced excursion. No hemodynamically significant aortic stenosis. Trace aortic regurgitation. Tricuspid Valve Structurally normal tricuspid valve. Mild tricuspid regurgitation. Moderate pulmonary hypertension. Right ventricular systolic pressure estimated to be elevated at 58 mmHg. Pulmonic Valve Pulmonic valve not well visualized, grossly normal. No pulmonic regurgitation. Pericardium No pericardial effusion. Great Vessels Normal size aortic root. Mildly dilated inferior vena cava. CONCLUSIONS Small left ventricular cavity. Normal left ventricular wall thickness. Normal left ventricular ejection fraction visually estimated at > 65%. Abnormal relaxation filling pattern of the left ventricle for age (stage 1 diastolic dysfunction). Mildly increased resting left ventricular outflow tract velocity (1.3 m/s). Normal right ventricular size and function. Normal atrial size. Mild mitral stenosis. Mild mitral regurgitation. Trace aortic regurgitation. Mild tricuspid regurgitation. Moderate pulmonary hypertension. Mildly dilated inferior vena cava. Jeremy Campos M.D. (Electronically Signed) Final Date: 19 February 2017 10:12 MEASUREMENTS (Male / Female) Normal Values 2D ECHO LV Diastolic Diameter PLAX 3.8 cm 4.2 - 5.9 / 3.9 - 5.3 cm LV Systolic Diameter PLAX 1.8 cm 2.1 - 4.0 cm LV Fractional Shortening PLAX 52.6 % 25 - 46 % LV Ejection Fraction 2D Teich 84.3 % IVS Diastolic Thickness 0.9 cm LVPW Diastolic Thickness 0.9 cm LV Relative Wall Thickness 0.5 RV Internal Dim ED PLAX 2.1 cm 1.9 - 3.8 cm LVOT Diameter 1.8 cm Aortic Root Diameter 2.6 cm LA Systolic Diameter LX 3.3 cm 3.0 - 4.0 / 2.7 - 3.8 cm LA Volume 29.0 cm 18 - 58 / 22 - 52 cm Ascending Aorta Diameter 2.2 cm DOPPLER AV Peak Velocity 180.0 cm/s AV Peak Gradient 13.0 mmHg AV Mean Velocity 120.0 cm/s AV Mean Gradient 7.0 mmHg AV Velocity Time Integral 39.2 cm LVOT Peak Velocity 134.0 cm/s LVOT Peak Gradient 7.2 mmHg LVOT Mean Velocity 90.7 cm/s LVOT Mean Gradient 4.0 mmHg LVOT Velocity Time Integral 28.8 cm LVOT Stroke Volume 73.3 cm AV Area Cont Eq vti 1.9 cm AV Area Cont Eq pk 1.9 cm MV Peak Velocity 223.0 cm/s MV Peak Gradient 19.9 mmHg MV Mean Velocity 139.0 cm/s MV Mean Gradient 9.0 mmHg Mitral E Point Velocity 174.0 cm/s Mitral A Point Velocity 187.0 cm/s Mitral E to A Ratio 0.9 MV PHT Velocity 225.5 cm/s MV Deceleration [place] 1353.5 cm/s MV Pressure Half Time 50.0 ms MV Area PHT 4.4 cm MV Deceleration Time 193.0 ms TR Peak Velocity 363.0 cm/s TR Peak Gradient 52.7 mmHg Right Atrial Pressure 5.0 mmHg Pulmonary Artery Systolic Pressu 57.7 mmHg Right Ventricular Systolic Press 57.7 mmHg PV Peak Velocity 117.0 cm/s PV Peak Gradient 5.5 mmHg PV Mean Velocity 73.6 cm/s PV Mean Gradient 3.0 mmHg PV Velocity Time Integral 30.2 cm LV E' Lateral Velocity 6.7 cm/s Mitral E to LV E' Lateral Ratio 26.0 LV E' Septal Velocity 5.7 cm/s Mitral E to LV E' Septal Ratio 30.5
[2017-02-19] MEDS ORDERED: LOSARTAN POTASS50 M1 PO (11:33)
--- NOTE | 2017-02-19 11:45 | PN- Housestaff ---
Glynn Obrien 02/19/17 1145: Subjective Follow-up For: Syncope Subjective: The patient seen and examined. She offers no complaints. Denies headache, nausea, vomiting, dizziness, lightheadedness, chest pain, shortness of breath, abdominal pain. She has been walking independently during her hospital stay. On admission, the patient stated that she is on losartan 25 mg daily, however today she remembers that the dose of her losartan was increased to 50 mg daily recently. No overnight events reported. Review of Systems Constitutional: Reports: no symptoms. Objective Last 24 Hrs of Vital Signs/I&O Vital Signs Date Time Temp Pulse Resp B/P B/P Pulse O2 O2 Flow FiO2 Mean Ox Delivery Rate 02/19 1307 80 159/63 02/19 1243 97.1 89 18 151/69 95 02/19 1037 97.9 85 12 165/68 93 02/19 0839 97.4 83 15 144/64 97 02/19 0617 99.5 84 18 125/58 94 Room Air 02/19 0215 97.9 78 16 152/82 96 Room Air 02/19 0028 99.9 81 18 182/76 95 Room Air 02/18 2120 74 19 164/71 97 Room Air 02/18 2047 93 144/67 02/18 1917 97.5 66 19 142/67 99 Room Air 02/18 1715 97.6 82 19 176/79 97 Room Air Intake & Output 02/19 1600 02/19 0800 02/19 0000 Intake Total Output Total Balance Patient 136 lb Weight Physical Exam General Appearance: Alert, Oriented X3, Cooperative, No Acute Distress Skin: No Rashes, Mild edema on left hallux, s/p toenail avulsion. No ecchymosis, no lesions, purulence, drainage or bollous changes. HEENT: Atraumatic, PERRLA, EOMI, Mucous Membr. moist/pink Neck: Supple, No JVD, No thryomegaly, +2 Carotid Pulse wo Bruit, No LAD Lymphatic: Cervical nl Cardiovascular: Regular Rate, Normal S1, Normal S2, No Murmurs, Gallops, Rubs Lungs: Clear to Auscultation, Normal Air Movement Abdomen: Normal Bowel Sounds, Soft, No Tenderness, No Hepatospenomegaly, No Masses Neurological: Normal Gait, Normal Speech, Strength at 5/5 X4 Ext, Normal Tone, Sensation Intact, Cranial Nerves 3-12 NL, Reflexes 2+ Extremities: No Clubbing, No Cyanosis, No Edema, Normal Pulses, No Tenderness/ Swelling Vascular: Normal Pulses, Pulses Symmetrical Current Medications: Current Medications Sig/Alyse Start time Last Medication Dose Route Stop Time Status Admin Amlodipine Besylate 10 MG DAILY 02/19 1000 CAN PO Aspirin 81 MG DAILY 02/18 1000 AC 02/19 PO 1304 Atorvastatin Calcium 40 MG 1700 02/18 1700 AC 02/18 PO 1713 Clindamycin 300 MG Q8 02/18 2200 AC 02/19 PO 02/19 2159 0628 Clindamycin 150 MG Q6 02/18 1833 DC PO 02/20 1832 Enoxaparin Sodium 40 MG DAILY 02/18 1000 AC 02/18 SC 1010 Folic Acid 1 MG DAILY 02/18 1000 AC 02/19 PO 1304 Guaifenesin 600 MG Q12 02/18 1000 AC 02/19 PO 1306 Lidocaine 0 .STK-MED ONE 02/18 1715 DC .ROUTE Losartan Potassium 50 MG DAILY 02/19 1134 AC 02/19 PO 1307 Losartan Potassium 25 MG DAILY 02/19 1133 DC PO Losartan Potassium 25 MG DAILY 02/18 1000 DC 02/18 PO 0934 Metoprolol Succinate 50 MG AT BEDTIME 02/18 2200 AC 02/18 PO 2047 Metoprolol Succinate 50 MG DAILY 02/18 1000 DC PO Omeprazole 20 MG DAILY AC 02/18 0700 AC 02/19 PO 0628 Assessment/Plan Assessment: This is an 86-year-old lady with past medical history significant for hypertension, hyperlipidemia, recurrent UTIs, osteoarthritis, GERD, who presented to the hospital after 2 syncopal episodes at home home. Physical exam on admission: Temperature 97.8, pulse rate 89, respiratory rate 18 , blood pressure 132/89, oxygen saturation 98% on room air.A O 3, cooperative, no acute distress, neck supple,no JVD, no lymphadenopathy, moist mucous membranes, no focal neurological deficit, no dependent edema,CVS: S1-S2, RRR. RS : Clear to auscultate bilaterally. Abdomen: Soft, NT, ND, bowel sounds present.No Rashes, Mild edema on left hallux with toenail avulsion. No ecchymosis, no lesions, purulence, drainage or bollous changes. Pertinent lab data on admission: Creatinine 1.1 otherwise unremarkable. Chest x -ray revealed large hiatal hernia, no acute pulmonary findings. EKG did not show any significant abnormality or acute changes. The following problems were addressed during the course of her hospital stay: #Syncope: * No events noted on telemetry. * ACS was ruled out with serial troponin and EKGs. * Echocardiogram did not reveal any significant abnormality. * Orthostatics negative. * Prolactin level 5.4 * The patient was evaluated by cardiology, who suggested a stress test. Patient prefers to do the stress test as an outpatient with her own cashier and salesperson. * Hydrochlorothiazide was discontinued based on cardiology recommendations. * Will not start the patient on amlodipine as it is documented as her allergies. * She was advised to stay well-hydrated. #Traumatic avulsion of left hallux toenail * Happened when the patient fell after an episode of syncope * Without any fever, chills, nausea, vomiting, diaphoresis, shortness of breath, chest pain * Was evaluated by podiatry who performed a complete toenail avulsion. * Podiatry recommended 3-5 days of oral prophylaxis, preferably with clindamycin given her allergies * To follow-up with podiatry upon discharge. #Mild increase of creatinine on admission: * Received gentle IV hydration * Next day creatinine level normalized to 1. #We continued [employer] aspirin, statin, folic acid, losartan, metoprolol, PPI. DVT PPx: Heparin SC Diet: Heart Healthy Code: DNR/DNI Problem List: 1. Syncope Pain Ratin Pain Location: NA Pain Goal: Remain pain free Pain Plan: NA Tomorrow's Labs & Rationales: Levy Cassidy MD 02/19/17 1448: Attending MD Review Statement Attending Statement Attending Statement: examined this patient, discuss w/resident/PA/ONLINE MEDIA BUYER, agreed w/resident/PA/ONLINE MEDIA BUYER, reviewed EMR data (avail), discussed with nursing, amended to note Attending Assessment/Plan: Patient seen and examined. Resting comfortably and not in acute distress. No issues overnight. Denies dizziness or lightheadedness. Ambulating freely around the unit not requiring any assistance. Denies any further abdominal pain. She now reports of abdominal discomfort on the day of presentation was likely secondary to gas. She denies nausea vomiting and is tolerating her meals. On examination she has no gross focal neurologic deficit. Heart sounds are regular. Lungs are clear bilaterally. Abdomen is soft and nontender. Laboratory data reveals improvement of her BUN and creatinine overnight. She was likely dehydrated likely confounded by her diuretic use. Recommendations: -Her dehydration was likely combination of vasovagal event from her pain and dehydration. -Patient has been advised to stay well-hydrated at home. She is to stop her hydrochlorothiazide and follow-up with her primary care provider/cardiology service as an outpatient. -The cardiology service has recommended patient should have an exercise stress test as an outpatient. Patient would like to follow-up with her cashier and salesperson regarding this. -She is to continue on metoprolol 50 mg daily for blood pressure control. Patient reports that recently losartan was increased from 25 mg to 50 mg. She has been advised to take the medication as prescribed by her provider on follow- up for monitoring of her blood pressure at home. Her blood pressure was in the 120s-140s this morning prior to medications. She should follow-up with her primary care provider and cashier and salesperson for further monitoring and optimization of her regimen. She will not be started on Norvasc as she is allergic to this medication.
[2017-02-19] MEDS ORDERED: CLEOCIN HCL300 M1 PO (12:27)
[2017-02-19 13:07] VITALS: BP 159/63
--- NOTE | 2017-02-19 17:08 | Discharge Summary ---
Visit Information Visit Dates Admission Date: 02/18/17 Discharge Date: 02/19/17 Hospital Course Course Attending Physician: Dr. Mar Primary Care Physician: Suki Liu MD Hospital Course: This is an 86-year-old lady with past medical history significant for hypertension, hyperlipidemia, recurrent UTIs, osteoarthritis, GERD, who presented to the hospital after 2 syncopal episodes at home. Physical exam on admission: Temperature 97.8, pulse rate 89, respiratory rate 18 , blood pressure 132/89, oxygen saturation 98% on room air.A O 3, cooperative, no acute distress, neck supple,no JVD, no lymphadenopathy, moist mucous membranes, no focal neurological deficit, no dependent edema,CVS: S1-S2, RRR. RS : Clear to auscultate bilaterally. Abdomen: Soft, NT, ND, bowel sounds present.No Rashes, Mild edema on left hallux with toenail avulsion. No ecchymosis, no lesions, purulence, drainage or bollous changes. Pertinent lab data on admission: Creatinine 1.1 otherwise unremarkable. Chest x -ray revealed large hiatal hernia, no acute pulmonary findings. EKG did not show any significant abnormality or acute changes. The following problems were addressed during the course of her hospital stay: #Syncope: Was monitored on telemetry which revealed no events during her hospital stay. ACS was ruled out with serial troponin and EKGs. Echocardiogram did not reveal any significant abnormality. Orthostatics were negative. Admission Prolactin level 5.4. The patient was evaluated by cardiology, who suggested a stress test. Patient prefers to do the stress test as an outpatient with her own net fisher. Hydrochlorothiazide was discontinued based on cardiology recommendations. We did not start the patient on amlodipine as it is documented as her allergies. She was advised to stay well-hydrated and follow up with her net fisher upon discharge. #Traumatic avulsion of left hallux toenail: Happened when the patient fell after an episode of syncope. The patient remained without any fever, chills, nausea, vomiting, diaphoresis, shortness of breath, chest pain. She was evaluated by podiatry who performed a complete toenail avulsion. Podiatry recommended 3-5 days of oral prophylaxis, preferably with clindamycin given her allergies The patient was discharged home to complete a three-day course of antibiotic therapy with clindamycin and was instructed to follow-up with podiatry within a week of discharge. #Mild increase of creatinine on admission: Received gentle IV hydration. Next day creatinine level normalized to 1. #We continued [employer]IP[employer] aspirin, statin, folic acid, losartan, metoprolol, PPI. #DVT PPx: Heparin SC #CODE STATUS: DNI/DNR Allergies: Coded Allergies: Cephalosporins (UNKNOWN 02/17/17) Penicillins (UNKNOWN 02/17/17) Sulfa (Sulfonamide Antibiotics) (UNKNOWN 02/17/17) amlodipine (TONGUE SWELLING 02/18/17) ciprofloxacin (From C[facility]RO HC) (RASH 02/18/17) hydrocortisone (From [facility]) (RASH 02/18/17) sulfamethoxazole (From BACTRIM) (UNKNOWN 02/17/17) trimethoprim (From BACTRIM) (UNKNOWN 02/17/17) Uncoded Allergies: ANTIBIOTICS (TONGUE SWELLING 01/19/11) Significant Procedures: Left hallux toenail avulsion on 02/18/2017. Disposition Summary Disposition Principal Diagnosis: Syncope Additional Diagnosis: Traumatic avulsion of left hallux toenail Discharge Disposition: home or self care Discharge Instructions General Discharge Information Code Status: Do Not Resucitate/Intubat Patient's Diet: Heart healthy Patient's Activity: As tolerated Follow-Up Instructions/Appts: -Please follow-up with your PCP within a week of discharge. -Please follow-up with your net fisher, Dr. Monique within a week of discharge. -Please follow-up with concession cashier Dr. North within a week of discharge. -Please take your medications as instructed. -Please return to the hospital if your symptoms not improve/worsen. Medications at Discharge Discharge Medications: Stop taking the following medications: Hydrochlorothiazide (Hydrochlorothiazide) 25 MG TABLET ORAL DAILY Continue taking these medications: Metoprolol Succinate (Metoprolol Succinate) 50 MG TAB.ER.24H 1 Tablet ORAL DAILY Days = 10 Omeprazole (Omeprazole) 20 MG CAPSULE.DR 1 Capsule ORAL DAILY Qty = 90 Simvastatin (Simvastatin*) 40 MG TABLET 1 Tablet ORAL Every night Qty = 90 Aspirin (Ecotrin*) 81 MG TABLET.DR 1 Tablet ORAL DAILY Folic Acid (Folic Acid) 1 MG TABLET 1 Tablet ORAL DAILY Losartan Potassium (Losartan Potassium) 50 MG TABLET 1 Tablet ORAL DAILY Start taking the following new medications: Clindamycin HCl (Cleocin HCl) 300 MG CAPSULE 1 Capsule ORAL THREE TIMES DAILY Qty = 7 No Refills Copies To: Noe PERKINS,Suki Maya Attending MD Review Statement Documenting Attending: Levy Mar MD Other Findings: Discharged in stable condition
--- NOTE | 2017-02-19 17:47 | PN- Podiatry ---
Surgical Brief Attending Note Brief Attending Note: I attempted to see this patient 24 hours after performing a total nail avulsion on the left hallux with local anesthesia as a brief follow-up, but she has already been discharged. We will arrange for outpatient f/u in our [place] office as she requested.
== END 2017-02-21 06:45 ==
LOC: ERH 23:19 → ERHI 02-18 01:39 → CANRESERV 02-19 12:23 → ENRESERV 02-19 12:23 → ERHI 02-19 15:02
PROVIDERS: Emergency Medicine; Student in an Organized Health Care Education/Training Program
DX: R55 Syncope and collapse (principal); I10 Essential (primary) hypertension; E78.5 Hyperlipidemia, unspecified; K21.9 Gastro-esophageal reflux disease without esophagitis; M81.0 Age-related osteoporosis without current pathological fracture; I95.9 Hypotension, unspecified; R63.0 Anorexia
CPT/HCPCS: 71046; 82436; 93005; 93010; 93306; 96372; 97110-GP; 97116-GP; 97161-GP; G0378; G8978-GP; G8979-GP; G8980-GP; J1650; J3490